=== PATIENT | male | born 1965 | race Caucasian/White ===

== ENCOUNTER 2018-10-04 12:30 | Emergency (ER) | payer MEDICAID ==
[~2018-10-04] VITALS: Ht 160 cm; Wt 68.9 kg
--- NOTE | 2018-10-04 12:30 | NUR ---
Placed in room 02 . Placed on monitoring and evaluation advisor, blood pressure machine and pulse oximeter. To gown for exam. Side rails up.
[2018-10-04 12:43] VITALS: BP_SYST 100
--- NOTE | 2018-10-04 12:50 | NUR ---
ER at bedside examining patient.
--- NOTE | 2018-10-04 12:52 | NUR ---
Pt bib ALS c/o gen weakness.Pt c/o nausea at this time.
[2018-10-04] MEDS ORDERED: NACL 0.9% 1,000 ML IV ONE ×2 (13:00→16:00)
[2018-10-04] MEDS ORDERED: ONDANSETRON HCL 4 MG/2 ML VIAL IVP ONE (13:00)
[2018-10-04 13:23] LABS: BASOPHILS # (AUTO) 0.1 K/uL (0.0-0.2); BASOPHILS % (AUTO) 0.9 % (0.0-2.0); EOSINOPHILS # (AUTO) 0.2 K/uL (0.0-0.4); EOSINOPHILS % (AUTO) 1.8 % (0.0-4.0); HEMATOCRIT 32.7 % (36-54); LYMPHOCYTES # (AUTO) 1.3 K/uL (1.0-5.5); LYMPHOCYTES % (AUTO) 14.8 % (20.5-51.5); MEAN CORPUSCULAR HEMOGLOBIN 28 pg (27-31); MEAN CORPUSCULAR HGB CONC 34 % (32-36); MEAN CORPUSCULAR VOLUME 84 fL (79.0-98.0); MONOCYTES # (AUTO) 0.7 K/uL (0.0-1.0); MONOCYTES % (AUTO) 7.4 % (1.7-9.3); NEUTROPHILS # (AUTO) 6.7 K/uL (1.8-7.7); NEUTROPHILS % (AUTO) 75.1 % (40.0-70.0); PLATELET COUNT (AUTO) 265 K/uL (130-430); RED BLOOD CELL COUNT(AUTO) 3.91 MIL/uL (4.2-6.2); RED CELL DISTRIBUTION WIDTH 15.7 % (9.0-15.0)
--- NOTE | 2018-10-04 13:45 | NUR ---
Pt tolerated medication well.
[2018-10-04 13:47] LABS: CALCIUM 7.9 mg/dL (8.4-11.0); CREATININE 5.39 mg/dL (0.55-1.30); POTASSIUM 3.8 mmol/L (3.5-5.1)
[2018-10-04 13:51] LABS: ALBUMIN 1.9 g/dL (3.4-4.8); TOTAL BILIRUBIN 0.7 mg/dL (0.0-1.0)
--- NOTE | 2018-10-04 14:30 | NUR ---
Pt reports feeling better. Pt has no acute distress noted.
--- NOTE | 2018-10-04 15:15 | NUR ---
Pt refusing sarmiento cath. Dr. Hood explained consequences.
--- NOTE | 2018-10-04 16:25 | NUR ---
Patient does not wish to proceed with medical care recommended by Martínez Hernandez. Patient given information related to possible complications, up to and including , which could occur as a result of leaving hospital at this time. Patient verbalizes understanding of risks involved leaving against medical advice. Patient has signed AMA form.
[2018-10-04 17:30] VITALS: BP_SYST 103
== END 2018-10-04 17:30 | disposition left against medical advice (07) ==
LOC: SED 12:30
DX: N17.9 Acute kidney failure, unspecified (principal); R11.10 Vomiting, unspecified; E11.9 Type 2 diabetes mellitus without complications; I10 Essential (primary) hypertension
CPT/HCPCS: 36415; 74176; 80053; 83690; 85025; 96361; 96374; 99284; J2405; J7030